=== PATIENT | male | born 2005 | race Hispanic/Latino ===

== ENCOUNTER 2025-01-30 15:08 | Emergency (ER) | payer SELFPAY ==
[~2025-01-30] VITALS: Ht 188 cm; Wt 90.7 kg
--- NOTE | 2025-01-30 15:41 | ERN ---
ED Note History of Present Illness Stated Complaint: NOSE BLEED Chief Complaint: Nosebleed Time Seen by MD: 15:12 Time Seen by Midlevel: 15:12 Dictation: The patient is a 19-year-old male with no past medical history who presents to the emergency department with complaints of nosebleed prior to arrival. Patient reports he occasionally gets this nosebleed reports today that nosebleed lasted 10 minutes. Reports he has been having some nasal congestion but denies any fevers. Past Medical History RN Note Reviewed/Agreed w/PFSH: Yes Review of System Dictation Constitutional: Negative for fever,chills, and weight loss Eyes: Negative for injury, pain,redness, and discharge ENT: Negative for injury,pain or swelling positive for nosebleed Cardiovascular: Negative for chest pain, palpitations, and edema Respiratory: Negative for shortness of breath, cough, and wheezing, Abdomen/GI: Negative for abdominal pain, nausea, vomiting, diarrhea, and cons tipation Back: Negative for injury and pain : Negative for injury, bleeding and discharge MS/Extremity: Negative for injury and deformity Skin: Negative for rash, and discoloration Neuro: Negative for headache, weakness, numbness, tingling, and seizure Psych: Negative for suicide ideation, homicidal ideation, and hallucinations Physical Exam Dictation Vital Signs reviewed General Appearance: Alert, oriented x 3, no acute distress, well developed, nourished. Head and Face: non-traumatic. Eyes: PERRL, pink conjunctivas, eyelid no trauma, anterior chamber with arcus senilis. Ears: Pinnas intact and no signs of trauma or erythema ear canals clear and no discharge TM no erythema Nose: No discharge, no bleeding. Oropharynx: Mouth normal, tongue pink. pharynx clear,no erythema, tonsils no exudates, no abscesses noted, mucous membrane moist Neck: Supple, non-tender, no thyromegaly, no masses, no JVD, no bruits Breast:Deferred Chest:No tenderness, no crepitus, no paradoxical movement, no retractions Lungs:Clear, well-ventilated, symmetric, no rales, no wheezing, no rhonchi, no stridor, good breath sounds bilaterally Heart: Regular rate, regular rhythm, no murmur, no gallops Vascular: no peripheral edema, Abdomen: Soft, positive bowel sounds, nondistended, no guarding, nontender, no rebound, no masses no hepatomegaly, no splenomegaly, no Wesley's sign, no hernias. Rectal: Deferred Genital: Deferred Neurological: Normal speech, motor function intact, sensory function intact Musculoskeletal: Neck nontender, full range of motion, back nontender, full range of motion, Extremities: nontender, full range of motion Skin: Color pink, dry, no turgor, no rash, no lacerations, no abrasions, no contusions. Lymphatic: Deferred Results (Laboratory/Radiology) Labs Reviewed?: Yes Medical Decision Making MDM The patient is a 19-year-old male with no past medical history who presents to the emergency department with complaints of nosebleed prior to arrival. Patient reports he occasionally gets this nosebleed reports today that nosebleed lasted 10 minutes. Reports he has been having some nasal congestion but denies any fevers. Denies any trauma Patient is currently not actively bleeding. Patient otherwise in no acute distress, nontoxic appearance will be discharged patient is to follow up with [facility]. Differential diagnosis: Nosebleed, URI, trauma Need for hospitalization: Patient does not meet criteria for hospitalization. There are no social concerns with this patient. DX & DISP Disposition: Discharge Departure Impression: Primary Impression: Epistaxis Condition: Stable Scripts Oxymetazoline HCl (Afrin) 0.05 % [place] 1 SPRAY NS BID for 3 Days, #15 ML 0 Refills Prov: MURALI SRIVASTAVA [facility] 01/30/25 Additional Instructions: If you develop a nosebleed again please apply pressure until it stops. Follow up with the primary doctor in 1-2 days. If bleeding does not stop or if anything worsens please return to ER. FOLLOW-UP WITH PRIMARY CARE PROVIDER IN 1 TO 2 DAYS. TAKE MEDICATIONS DIRECTED HERE IN THE EMERGENCY ROOM. OKAY TO CONTINUE HOME MEDICATIONS UNLESS OTHERWISE DISCUSSED DURING YOUR VISIT IN THE EMERGENCY ROOM TODAY. RETURN TO YOUR NEAREST EMERGENCY ROOM IF SYMPTOMS WORSEN OR IF THERE IS NO IMPROVEMENT. CALL 911 IF YOU NEED IMMEDIATE ASSISTANCE. TAKE TYLENOL [id number] NEEDED AND IF NO CONTRAINDICATIONS ARE PRESENT. INCREASE ORAL HYDRATION. A WOUND CULTURE OR URINE CULTURE WAS ORDERED HERE IN THE EMERGENCY ROOM DEPARTMENT PLEASE FOLLOW-UP WITH PRIMARY CARE PROVIDER AND ADVISE THEM TO GET REPEAT PORTS FROM OUR FACILITY. IF YOU HAD ANY LUCIANA WRAP/SPLINTS THAT WERE APPLIED HERE, PLEASE DO NOT REMOVE THEM UNTIL YOU SEE YOUR PRIMARY CARE OR SPECIALTY. Referrals: SELF,REFERRAL (PCP) Time of Disposition: 15:49 I have reviewed the case, and I agree with, Diagnosis and Plan MURALI SRIVASTAVA [facility] Jan 30, 2025 15:41
[2025-01-30] MEDS ORDERED: OXYM30SP27 NS (15:48)
[2025-01-30 17:13] VITALS: BP 149/83; PULSE 86; RESP 16; TEMP 98.7; O2SAT 98
== END 2025-01-30 17:21 | disposition home or self-care (01) ==
LOC: EDH 15:08
DX: R04.0 Epistaxis (principal); R09.81 Nasal congestion
CPT/HCPCS: 99282